=== PATIENT | female | born 1985 | race Caucasian/White ===

== ENCOUNTER → 2017-07-29 | Outpatient (CLI) | payer BC ==
[2017-07-31 11:40] LABS: DSR (BY AGE) 1 IN 665 (.); DSR (SECOND TRIMESTER) 1 IN 250 (.); GESTATIONAL AGE BASED ON. As provided (.); HCG MOM 1 2.26 (.); HCG VALUE 1 51355 mIU/mL (.); INSULIN DEPENDENT DIABETES No (.); OSBR RISK (1 IN) 10000 (.); T18RISK Not increased (.); UE3 MOM AFP 0.55 (.); UE3 VALUE AFP 0.78 ng/mL (.)
== END ==
LOC: OD 09:29
PROVIDERS: ATTEND Midwife
DX: Z36 Encounter for antenatal screening of mother (principal)
CPT/HCPCS: 36415; 82105; 82677; 84702; 86336; 87491; 87591

== ENCOUNTER → 2017-08-12 | Outpatient (CLI) | payer BC | LOC: OD 11:35 | PROVIDERS: ATTEND Midwife | DX: Z36 Encounter for antenatal screening of mother (principal) | CPT/HCPCS: 36415; 81420 ==

== ENCOUNTER 2017-12-09 11:38 | Outpatient (CLI) | payer BC, MEDICAID ==
[2017-12-09 12:22] LABS: APPEARANCE,URINE CLEAR; BILIRUBIN,URINE NEGATIVE (NEGATIVE); COLOR,URINE STRAW; GLUCOSE, URINE NEGATIVE (NEGATIVE); KETONES,URINE NEGATIVE (NEGATIVE); LEUKOCYTE ESTERASE,URINE TRACE (NEGATIVE); NITRITE,URINE NEGATIVE (NEGATIVE); PROTEIN,URINE NEGATIVE (NEGATIVE); URINE SPECIFIC GRAVITY 1.003; UROBILINOGEN,URINE NEGATIVE mg/dL (<2.0)
[2017-12-09 12:38] LABS: URINE AMPHETAMINES SCREEN NEGATIVE; URINE BARBITURATES SCREEN NEGATIVE; URINE BENZODIAZEPINES SCREEN NEGATIVE; URINE COCAINE SCREEN NEGATIVE; URINE MARIJUANA (THC) SCREEN NEGATIVE; URINE METHADONE SCREEN NEGATIVE; URINE PHENCYCLIDINE SCREEN NEGATIVE
--- NOTE | 2017-12-09 12:55 | Non Stress Test Report ---
Non Stress Test Datetime Report Generated by CPN: 12/09/2017 12:54 DEMOGRAPHIC EGA NST: 37.4 INDICATION Indication for Study: Ordered by Provider MONITORING Monitor Explained: Monitor Explained; Test Explained; Patient Verbalized Understanding (Annotations: Data stored by [facility] on behalf of user) Time on Monitor: 12/09/2017 11:54 Time off Monitor: 12/09/2017 12:42 NST Duration: 48 NST INTERVENTIONS NST Interventions: PO Hydration Physician Notified NST: J bashri CNM BABY A: [id number] BABY A Movement : Present Contraction Frequency : irregular FHR Baseline : 125 Accelerations : 15X15 Decelerations : None Variability : Moderate 6-25bpm NST Review: Meets Criteria for Reactive NST NST Review and Verified By : Lashay Mcknight RNC NST Results: Reactive NST REPORT Report Trigger: Send Report
== END 2017-12-09 12:48 | disposition home or self-care (01) ==
LOC: LC 11:38
PROVIDERS: ATTEND Obstetrics & Gynecology
PROC: 4A1HXCZ Monitoring of Products of Conception, Cardiac Rate, External Approach (ICD-10-PCS; principal; 2017-12-09)
DX: O47.1 False labor at or after 37 completed weeks of gestation (principal); Z3A.37 37 weeks gestation of pregnancy
CPT/HCPCS: 59025; 80307; 81005

== ENCOUNTER 2017-12-16 03:55 | Outpatient (CLI) | payer BC, MEDICAID ==
[2017-12-16 04:27] LABS: APPEARANCE,URINE CLEAR; BILIRUBIN,URINE NEGATIVE (NEGATIVE); COLOR,URINE YELLOW; GLUCOSE, URINE NEGATIVE (NEGATIVE); KETONES,URINE NEGATIVE (NEGATIVE); LEUKOCYTE ESTERASE,URINE SMALL (NEGATIVE); NITRITE,URINE NEGATIVE (NEGATIVE); PROTEIN,URINE NEGATIVE (NEGATIVE); URINE SPECIFIC GRAVITY 1.008; UROBILINOGEN,URINE NEGATIVE mg/dL (<2.0)
[2017-12-16 04:42] LABS: URINE AMPHETAMINES SCREEN NEGATIVE; URINE BARBITURATES SCREEN NEGATIVE; URINE BENZODIAZEPINES SCREEN NEGATIVE; URINE COCAINE SCREEN NEGATIVE; URINE MARIJUANA (THC) SCREEN NEGATIVE; URINE METHADONE SCREEN NEGATIVE; URINE PHENCYCLIDINE SCREEN NEGATIVE
[2017-12-16] MEDS ORDERED: HYDROXYZINE PAMOATE 50 MG CAPSULE PO ONE (05:39)
[2017-12-16] MEDS ORDERED: HYDROXYZINE PAMOATE 50 MG CAPSULE ONE (05:46)
== END 2017-12-16 05:51 | disposition home or self-care (01) ==
LOC: LC 03:55
PROVIDERS: ATTEND Obstetrics & Gynecology
PROC: 4A1HXCZ Monitoring of Products of Conception, Cardiac Rate, External Approach (ICD-10-PCS; principal; 2017-12-16)
DX: O47.1 False labor at or after 37 completed weeks of gestation (principal); Z3A.38 38 weeks gestation of pregnancy
CPT/HCPCS: 59025; 80307; 81005

== ENCOUNTER 2017-12-24 11:14 | Inpatient (IN) | payer BC, MEDICAID ==
--- NOTE | 2017-12-24 11:17 | Non Stress Test Report ---
Non Stress Test Datetime Report Generated by CPN: 12/24/2017 11:17 DEMOGRAPHIC EGA NST: 38.4 INDICATION Indication for Study: Ordered by Provider; Other Indication for Study (NST) Other: LC MONITORING Monitor Explained: Monitor Explained; Test Explained; Patient Verbalized Understanding Time on Monitor: 12/16/2017 04:06 Time off Monitor: 12/16/2017 05:36 NST Duration: 90 NST INTERVENTIONS NST Interventions: PO Hydration Physician Notified NST: Vini BABY A: [id number] BABY A Movement : Present Contraction Frequency : irregular FHR Baseline : 130 Accelerations : 15X15 Decelerations : None Variability : Moderate 6-25bpm NST Review: Meets Criteria for Reactive NST NST Review and Verified By : Naty Alvarado RN NSCaleb Results: Reactive NST REPORT Report Trigger: Send Report
[2017-12-24] MEDS ORDERED: RINGERS SOLUTION,LACTATED 1,000 ML IV PRN (11:34)
[2017-12-24] MEDS ORDERED: PENICILLIN G POTASSIUM 5,000,000 UNIT in DEXTROSE 5%-WATER 100 ML IV ONE (11:34)
[2017-12-24] MEDS ORDERED: RINGERS SOLUTION,LACTATED 1,000 ML IV ONE (11:34)
[2017-12-24 11:43] LABS: APPEARANCE,URINE CLEAR; BILIRUBIN,URINE NEGATIVE (NEGATIVE); COLOR,URINE YELLOW; GLUCOSE, URINE NEGATIVE (NEGATIVE); KETONES,URINE NEGATIVE (NEGATIVE); LEUKOCYTE ESTERASE,URINE TRACE (NEGATIVE); NITRITE,URINE NEGATIVE (NEGATIVE); PROTEIN,URINE NEGATIVE (NEGATIVE); URINE SPECIFIC GRAVITY 1.012; UROBILINOGEN,URINE NEGATIVE mg/dL (<2.0)
[2017-12-24] MEDS ORDERED: PENICILLIN G-K 5 MILLION UNIT VIAL ONE ×2 (11:49→15:26)
[2017-12-24 12:00] LABS: URINE AMPHETAMINES SCREEN NEGATIVE; URINE BARBITURATES SCREEN NEGATIVE; URINE BENZODIAZEPINES SCREEN NEGATIVE; URINE COCAINE SCREEN NEGATIVE; URINE MARIJUANA (THC) SCREEN NEGATIVE; URINE METHADONE SCREEN NEGATIVE; URINE PHENCYCLIDINE SCREEN NEGATIVE
[2017-12-24 12:17] LABS: ABSOLUTE EOSINOPHILS # (AUTO) 0.1 10^3/uL (0.0-0.6); ABSOLUTE MONOCYTES (AUTO) 0.8 10^3/uL (0.1-1.4); ABSOLUTE NEUT (AUTO) 12.1 10^3/uL (1.7-8.2); BASOPHILS % (AUTO) 0.1 % (0-2); EOSINOPHILS % (AUTO) 0.4 % (0-6); HEMATOCRIT 37.6 % (36.0-47.0); HEMOGLOBIN 12.5 g/dL (12.0-15.5); LYMPHOCYTES % (AUTO) 13.2 % (13-45); MEAN CORPUSCULAR HGB CONC 33.1 g/dL (32.0-36.0); MEAN CORPUSCULAR VOLUME 85 fl (80-97); MONOCYTES % (AUTO) 5.2 % (3-13); PLATELET COUNT 182 10^3/uL (150-450); RED BLOOD COUNT 4.45 10^6/uL (3.72-5.28); RED CELL DISTRIBUTION WIDTH 16.2 % (11.5-14.0); SEGMENTED NEUTROPHILS % (AUTO) 81.1 % (42-78); TOTAL CELLS COUNTED % (AUTO) 100 %; WHITE BLOOD COUNT 14.9 10^3/uL (4.0-10.5)
[2017-12-24] MEDS ORDERED: MISOPROSTOL 0.2 MG TABLET ONE (12:31)
[2017-12-24] MEDS ORDERED: LIDOCAINE 1% INJ-PF (10 MG/ML) 30 ML SDV ONE (12:31)
[2017-12-24] MEDS ORDERED: OXYTOCIN/NORMAL SALINE 20 UNIT/1,000 ML RTUINJ ONE ×2 (12:31→21:07)
[2017-12-24] MEDS ORDERED: NORMAL SALINE 250 ML IV PRN (13:06)
[2017-12-24] MEDS ORDERED: PENICILLIN G POTASSIUM 2,500,000 UNIT in DEXTROSE 5%-WATER 50 ML IV SCH (15:35)
[2017-12-24] MEDS ORDERED: OXYTOCIN/NORMAL SALINE 20 UNIT/1,000 ML RTUINJ IV PRN ×2 (16:02→19:40)
--- NOTE | 2017-12-24 16:03 | L&D Progress Notes ---
PROGRESS NOTES Datetime Report Generated by CPN: 12/24/2017 16:02 PROGRESS NOTE Impression: Normal Progression of Labor Procedures: Artificial ROM; Sterile Speculum Exam Plan: Augmentation Informed Consent Obtained: Vaginal Delivery; Risks, Benefits and Alternatives Discussed Informed Consent Obtained: Vaginal Delivery; Risks, Benefits and Alternatives Discussed Vital Signs : Reviewed Comment: S: pt. would like rupture of membranes instead of augmentation with pit if possible O: vss, cervix as stated, irreg. contractions A: IUP @39w5d in labor-slowly progressing AROM-clear fluid P: Augment with pit if contractions continue to space out. Pt. agreeable with plan of care. VAGINAL EXAM Dilatation: 5 Dilatation: 5 Effacement: 100 Effacement: 80 Station: -2 Station: -2 Contractions: irregular Contractions: q24 MEMBRANES Membranes: Ruptured Membranes: Intact Amniotic Fluid Color: Clear FETUS A FHR - Baseline: 120 Variability: Moderate 6-25bpm Decelerations: None FHR Category: Category I Presentation: Vertex SIGNATURE SIGNATURE: [id number];[id number] SIGNATURE: [id number] SIGNATURE: [id number] Assignment: Christie Haider MD Signature: with User ID: [email or web address] : with User ID: [email or web address]
--- NOTE | 2017-12-24 17:38 | L&D Progress Notes ---
PROGRESS NOTES Datetime Report Generated by CPN: 12/24/2017 17:38 PROGRESS NOTE Impression: Reassuring Heart Rate Procedures: Sterile Vag Exam Plan: Continue Present Management Vital Signs : Reviewed Comment: breathing thru ctx. unsure about pain mgmt. Reviewed pain mgmt options unable to assess sve as pts bladder was full and presenting part was very high sono done, vertex Pt up to bathroom Pt to decide on pain mgmt FETUS A FHR - Baseline: 135 Monitoring: External US Variability: Moderate 6-25bpm Accelerations: 15X15 Decelerations: None FHR Category: Category I FETUS C SIGNATURE: [id number];[id number] Assignment: Christie Haider MD Signature: with User ID: [email or web address] : with User ID: [email or web address]
[2017-12-24] MEDS ORDERED: PROMETHAZINE HCL INJ 25 MG/1 ML VIAL IV ONE (18:07)
[2017-12-24] MEDS ORDERED: NALBUPHINE HCL INJ 10 MG/1 ML AMPULE INJ ONE (18:07)
[2017-12-24] MEDS ORDERED: PROMETHAZINE HCL INJ 25 MG/1 ML VIAL ONE (18:09)
[2017-12-24] MEDS ORDERED: NALBUPHINE HCL INJ 10 MG/1 ML AMPULE ONE (18:10)
[2017-12-24] MEDS ORDERED: PROMETHAZINE HCL INJ 25 MG/1 ML VIAL IV PRN (19:40)
[2017-12-24] MEDS ORDERED: ZOLPIDEM TARTRATE 5 MG TABLET PO PRN (19:40)
[2017-12-24] MEDS ORDERED: NA PHOS,M-B/NA PHOS,DI-BA (ADULT) 133 ML ENEMA PR PRN (19:40)
[2017-12-24] MEDS ORDERED: DIBUCAINE 1% OINTMENT 28 GM TP PRN (19:40)
[2017-12-24] MEDS ORDERED: DIPHENHYDRAMINE HCL 25 MG CAPSULE PO PRN (19:40)
[2017-12-24] MEDS ORDERED: PROMETHAZINE HCL 25 MG SUPP.RECT PR PRN (19:40)
[2017-12-24] MEDS ORDERED: PSEUDOEPHEDRINE HCL 30 MG TABLET PO PRN (19:40)
[2017-12-24] MEDS ORDERED: ACETAMINOPHEN 650 MG SUPP.RECT PR PRN (19:40)
[2017-12-24] MEDS ORDERED: MEASLES,MUMPS&RUBELLA VACC/PF 0.5 ML VIAL SUBCUT PRN (19:40)
[2017-12-24] MEDS ORDERED: BENZOCAINE/MENTHOL AEROSOL SPRAY 56 ML TOP PRN (19:40)
[2017-12-24] MEDS ORDERED: ACETAMINOPHEN WITH CODEINE #3 TABLET PO PRN ×2 (19:40)
[2017-12-24] MEDS ORDERED: PROMETHAZINE HCL 25 MG TABLET PO PRN (19:40)
[2017-12-24] MEDS ORDERED: DIPH/PERTUSS(ACELL)/TETANUS VAC/PF 0.5 ML SYR (>=10YO) IM PRN (19:40)
[2017-12-24] MEDS ORDERED: GLYCERIN/WITCH HAZEL LEAF 1 EACH MED..PAD TP PRN (19:40)
[2017-12-24] MEDS ORDERED: MAGNESIUM HYDROXIDE SUSP 30 ML UDCUP PO PRN (19:40)
[2017-12-24] MEDS ORDERED: MISOPROSTOL 0.2 MG TABLET PR PRN (19:40)
[2017-12-24] MEDS ORDERED: FENTANYL CITRATE INJ/PF 100 MCG/2 ML AMPUL ONE (20:09)
--- NOTE | 2017-12-24 22:28 | Admission Physical ---
Datetime Report Generated by CPN: 12/24/2017 22:28 CURRENT ADMISSION Chief Complaint: Uterine Contractions Indication for Induction: Not Applicable Indication for Induction: Term, Intrauterine ; Active Labor; Intact Membranes Admit Plan: Admit to Unit; Initiate Labor Protocol ALLERGIES Medication Allergies: Yes Medication Allergies: sulfamethoxazole/Hives (12/09/2017); trimethoprim/Hives (12/09/2017) Latex: No Latex Allergies Food Allergies: none Environmental Allergies: none OBSTETRICAL HISTORY EDC: 12/26/2017 00:00 : 6 Para: 5 Term: 5 : 0 SAB: 0 IAB: 0 Ectopic: 0 Livin Cesareans: 0 VBACs: 0 Multiple Births: 0 Gestational Diabetes: No Rh Sensitization: No Incompetent Cervix: No JOHNNIE: No Infertility: No ART Treatment: No Uterine Anomaly: No IUGR: No Hx Previous C/S: No Macrosomia: No Hx Loss/Stillborn: No PIH: No Hx : No Placenta Previa/Abruption: No Depression/PP Depression: No PTL/PROM: No Post Hemorrhage: No Current Procedures: Ultrasound; NST Obstetrical History Comments: G1 boy,2004, 41 weeks G2 girl, 2006, ,37 weeks G3 girl, 2008, 38wks G4 boy,2012, 38 wks G5 boy,2014, 38 wks G6 current SEE RECORDS Alcohol: No Marijuana : No Cocaine: No Other Illicit Drugs: No Cigarettes: Never Smoker. 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: No Heart Disease: No Hosp/Surgery: Yes Autoimmune Disorder: No Anesthetic Complications: No Kidney Disease: No Abnormal Pap Smear: No Neuro/Epilepsy: No Psychiatric Disorders: No Other Medical Diseases: No Hepatitis/Liver Disease: No Significant Family History: No Varicosities/Phlebitis: No Trauma/Violence : No Thyroid Dysfunction: No Medical History Comments: CHILDBIRTH INFECTIOUS HISTORY Gonorrhea: No Genital Herpes: No Chlamydia: Yes Tuberculosis: No Syphilis: No Hepatitis: No HIV/AIDS Exposure: No Rash or Viral Illness: No HPV: No Infectious History Comments: SHRUTHI 07/2017 PHYSICAL EXAM General: Normal HEENT: Normal Neurologic: Normal Thyroid: Deferred Heart: Normal Lungs: Normal Breast: Deferred Back: Normal Abdomen: Normal Genitourinary Exam: Normal Extremities: Normal DTRs: Normal Pelvic Type: Adequate Vital Signs: Reviewed VAGINAL EXAM Dilatation: 5 Dilatation: 5 Effacement: 100 Effacement: 80 Station: -2 Station: -2 Contraction Comments: irregular Contraction Comments: q24 MEMBRANES Membranes: Ruptured Membranes: Intact Amniotic Fluid Color: Clear FETUS A EGA: 39.5 Monitoring: External US FHR- Baseline: 125 Variability: Moderate 6-25bpm Accelerations: 15X15 Decelerations: None FHR Category: Category I Presentation: Vertex Admit Comment: 32yo at 39+5ega presents for regular uterine contractions. c/b Obesity - normal 1 hr GTT. + chlamydia - good SHRUTHI. Wants to have BTL. GBS positive - PCN for GBS prophy. +AFP with increased risk for DS - normal Informaseq. Pelvis proven to 8#14oz. Rh negative - recieved Rhogam. CAT I FHR tracing. Anticpate . PLANS FOR LABOR AND DELIVERY Pain Management: None Feeding Preference: Both Benefit of Breast Feed Discussed: Yes Circumcision: Yes INFORMED CONSENT Informed Consent Obtained: Vaginal Delivery; Risks, Benefits and Alternatives Discussed Informed Consent Obtained: Vaginal Delivery; Risks, Benefits and Alternatives Discussed Signature: with User ID: [email or web address]
[2017-12-24] MEDS: FAMOTIDINE 20 MG TABLET PO SCH (23:03)
[2017-12-24] MEDS: IBUPROFEN 800 MG TABLET PO SCH (23:03)
[2017-12-25] MEDS: IBUPROFEN 800 MG TABLET PO SCH ×3 (06:35→21:03)
[2017-12-25 08:19] LABS: HEMATOCRIT 33.1 % (36.0-47.0); MEAN CORPUSCULAR HEMOGLOBIN 27.9 pg (27.0-33.4); MEAN CORPUSCULAR HGB CONC 33.1 g/dL (32.0-36.0); MEAN CORPUSCULAR VOLUME 84 fl (80-97); PLATELET COUNT 188 10^3/uL (150-450); RED BLOOD COUNT 3.92 10^6/uL (3.72-5.28); RED CELL DISTRIBUTION WIDTH 15.8 % (11.5-14.0)
[2017-12-25] MEDS: FERROUS SULFATE 325 MG TABLET PO SCH ×2 (09:08→17:35)
[2017-12-25] MEDS: DOCUSATE SODIUM 100 MG CAPSULE PO SCH ×2 (09:08→17:35)
[2017-12-25] MEDS: SENNOSIDES/DOCUSATE 8.6-50 MG 1 EACH TABLET PO SCH (09:08)
[2017-12-25] MEDS: FAMOTIDINE 20 MG TABLET PO SCH ×2 (09:08→21:03)
[2017-12-25] MEDS: PRENATAL VITAMIN W DHA CAPSULE PO SCH (09:09)
--- NOTE | 2017-12-25 09:52 | PDOC PROGRESS REPORT ---
Subjective-OB Subjective: Post Delivery Day: 32 year old. Denies any needs at this time Physical Exam (OB) Vital Signs: Temp Pulse Resp BP Pulse Ox 98.6 F 69 17 104/48 L 99 12/25/17 08:24 12/25/17 08:24 12/25/17 08:24 12/25/17 08:24 12/25/17 08:24 Intake & Output 12/24/17 12/25/17 12/26/17 06:59 06:59 06:59 Weight 91.6 kg - Lochia Lochia Amount: Moderate 25-50 ml Lochia Color: Rubra/Red - Abdomen Description: Tender, Soft Hernia Present: No Bowel Sounds: Normoactive Flatus Presence: Absent Stool: No Fundal Description: Firm, Midline Fundal Height: u/u - u/2 Objective-Diagnostic Laboratory: 12/25/17 07:42 12/24/17 12/24/17 12/24/17 11:20 12:01 12:01 WBC 14.9 H RBC 4.45 Hgb 12.5 Hct 37.6 MCV 85 MCH 28.0 MCHC 33.1 RDW 16.2 H Plt Count 182 Seg Neutrophils % 81.1 H Lymphocytes % 13.2 Monocytes % 5.2 Eosinophils % 0.4 Basophils % 0.1 Absolute Neutrophils 12.1 H Absolute Lymphocytes 2.0 Absolute Monocytes 0.8 Absolute Eosinophils 0.1 Absolute Basophils 0.0 Urine Color YELLOW Urine Appearance CLEAR Urine pH 6.0 Ur Specific [place] 1.012 Urine Protein NEGATIVE Urine Glucose (UA) NEGATIVE Urine Ketones NEGATIVE Urine Blood NEGATIVE Urine Nitrite NEGATIVE Ur Leukocyte Esterase TRACE H Urine WBC (Auto) 5 Urine RBC (Auto) 0 Blood Type A NEGATIVE Antibody Screen POSITIVE 12/25/17 12/25/17 07:42 07:42 WBC 19.0 H RBC 3.92 Hgb 11.0 L Hct 33.1 L MCV 84 MCH 27.9 MCHC 33.1 RDW 15.8 H Plt Count 188 Seg Neutrophils % Lymphocytes % Monocytes % Eosinophils % Basophils % Absolute Neutrophils Absolute Lymphocytes Absolute Monocytes Absolute Eosinophils Absolute Basophils Urine Color Urine Appearance Urine pH Ur Specific [place] Urine Protein Urine Glucose (UA) Urine Ketones Urine Blood Urine Nitrite Ur Leukocyte Esterase Urine WBC (Auto) Urine RBC (Auto) Blood Type A NEGATIVE Antibody Screen
[2017-12-26] MEDS: IBUPROFEN 800 MG TABLET PO SCH ×2 (05:51→13:08)
[2017-12-26 07:26] LABS: HEMATOCRIT 35.5 % (36.0-47.0); HEMOGLOBIN 11.6 g/dL (12.0-15.5); MEAN CORPUSCULAR HEMOGLOBIN 28.2 pg (27.0-33.4); MEAN CORPUSCULAR HGB CONC 32.8 g/dL (32.0-36.0); MEAN CORPUSCULAR VOLUME 86 fl (80-97); PLATELET COUNT 181 10^3/uL (150-450); RED BLOOD COUNT 4.13 10^6/uL (3.72-5.28); RED CELL DISTRIBUTION WIDTH 16.1 % (11.5-14.0); WHITE BLOOD COUNT 15.3 10^3/uL (4.0-10.5)
[2017-12-26] MEDS: DOCUSATE SODIUM 100 MG CAPSULE PO SCH (09:18)
[2017-12-26] MEDS: FERROUS SULFATE 325 MG TABLET PO SCH (09:19)
[2017-12-26] MEDS: SENNOSIDES/DOCUSATE 8.6-50 MG 1 EACH TABLET PO SCH (09:19)
[2017-12-26] MEDS: FAMOTIDINE 20 MG TABLET PO SCH (09:19)
[2017-12-26] MEDS: PRENATAL VITAMIN W DHA CAPSULE PO SCH (09:19)
--- NOTE | 2017-12-26 09:22 | PDOC PROGRESS REPORT ---
Subjective-OB Subjective: Post Delivery Day: 32 year old. Denies any needs at this time Doing well, no c/o, breast feeding only. scant lochia, voiding, eating well Physical Exam (OB) Vital Signs: Temp Pulse Resp BP Pulse Ox 97.9 F 77 17 124/66 99 12/26/17 08:05 12/26/17 08:05 12/26/17 08:05 12/26/17 08:05 12/26/17 08:05 Intake & Output 12/25/17 12/26/17 12/27/17 06:59 06:59 06:59 Intake Total 300 Balance 300 Weight 91.6 kg - PIH/Pre-Eclampsia DTR's: 2 + Clonus: Negative Headache: Absent Epigastric Pain: No Visual Changes: No - Lochia Lochia Amount: Scant < 10 ml Lochia Color: Rubra/Red - Abdomen Description: Tender, Soft, Round Hernia Present: No Fundal Description: Firm, Midline Fundal Height: u/u - u/2 Objective-Diagnostic Laboratory: 12/26/17 07:15 12/25/17 12/26/17 07:42 07:15 WBC 15.3 H RBC 4.13 Hgb 11.6 L Hct 35.5 L MCV 86 MCH 28.2 MCHC 32.8 RDW 16.1 H Plt Count 181 Blood Type A NEGATIVE Assessment and Plan(PN) - Assessment and Plan (1) Obesity Qualifiers: Obesity type: due to excess calories Body mass index: unspecified BMI Is this a current diagnosis for this admission?: Yes (2) Delivery normal Is this a current diagnosis for this admission?: Yes (3) Grand multiparity Is this a current diagnosis for this admission?: Yes (4) Group B streptococcal infection during Is this a current diagnosis for this admission?: Yes - Time Spent with Patient Time with patient: Less than 15 minutes Medications reviewed and adjusted accordingly: Yes - Disposition Anticipated Discharge: Home Within: Other - home today
--- NOTE | 2017-12-26 09:25 | PDOC DISCHARGE SUMMARY ---
Final Diagnosis Discharge Date: 12/26/17 - Final Diagnosis (1) Obesity Is this a current diagnosis for this admission?: Yes (2) Delivery normal Is this a current diagnosis for this admission?: Yes (3) Grand multiparity Is this a current diagnosis for this admission?: Yes (4) Group B streptococcal infection during Is this a current diagnosis for this admission?: Yes Discharge Data - Discharge Medication Home Medications: Ascorbic Acid [Vitamin C] 1,000 mg PO DAILY 12/09/17 Docusate Sodium [Colace] 100 mg PO DAILY 12/09/17 Esomeprazole Magnesium [Nexium 24Hr] 1 cap PO DAILY 12/09/17 Ferrous Sulfate [Iron] 325 mg PO BID 12/09/17 Pediatric Multivitamin No.42 [Flintstones] 1 tab PO DAILY 12/09/17 Gestational Age: 39.5 Reason(s) for Admission: Onset of Labor, Group B Strep Positive Procedures: Ultrasound Intrapartum Procedure(s): Spontaneous Vaginal Delivery - Data Baby 1 Male at 1 minute: 9 at 5 minutes: 9 Weight: 3.374 kg Home with Mother: Yes Complications: No - Diagnosis Test Laboratory: Temp Pulse Resp BP Pulse Ox 97.9 F 77 17 124/66 99 12/26/17 08:05 12/26/17 08:05 12/26/17 08:05 12/26/17 08:05 12/26/17 08:05 12/24/17 12/24/17 12/25/17 11:20 12:01 07:42 RBC 4.45 3.92 Hgb 12.5 11.0 L Hct 37.6 33.1 L Urine Opiates Screen NEGATIVE 12/26/17 07:15 RBC 4.13 Hgb 11.6 L Hct 35.5 L Urine Opiates Screen - Discharge information/Instructions Discharge Activity: Activity As Tolerated, No Lifting Over 10 Pounds, No Lifting /Push/Pulling, Pelvic Rest Discharge Diet: As Tolerated, Regular Disposition: HOME, SELF-CARE Follow up with: [facility] in: 4, Weeks
[2017-12-26 09:34] VITALS: BP 106/58
== END 2017-12-26 13:30 | disposition home or self-care (01) | DRG 775 ==
LOC: LC 11:14 → LR 11:34 → 2S 22:00
PROVIDERS: ADMIT Student in an Organized Health Care Education/Training Program; ATTEND Student in an Organized Health Care Education/Training Program
PROC: 10E0XZZ Delivery of Products of Conception, External Approach (ICD-10-PCS; principal; 2017-12-24)
PROC: 4A1HXCZ Monitoring of Products of Conception, Cardiac Rate, External Approach (ICD-10-PCS; 2017-12-24)
PROC: 3E0234Z Introduction of Serum, Toxoid and Vaccine into Muscle, Percutaneous Approach (ICD-10-PCS; 2017-12-25)
DX: O99.824 Streptococcus B carrier state complicating childbirth (principal); O26.893 Other specified pregnancy related conditions, third trimester; Z67.11 Type A blood, Rh negative; O99.214 Obesity complicating childbirth; E66.09 Other obesity due to excess calories; Z68.34 Body mass index [BMI] 34.0-34.9, adult; O69.81X0 Labor and delivery complicated by cord around neck, without compression, not applicable or unspecified; Z88.3 Allergy status to other anti-infective agents; Z88.2 Allergy status to sulfonamides; Z3A.39 39 weeks gestation of pregnancy; Z37.0 Single live birth
CPT/HCPCS: 36415; 80307; 81001; 85025; 85027; 85461; 86592; 86850; 86870; 86900; 86901; 86920; 86922; J2300; J2540; J2550; J2590; J2790; J3010; J3490

== ENCOUNTER 2019-06-02 05:27 | Outpatient (CLI) | payer BC, MEDICAID ==
[2019-06-02 06:14] LABS: APPEARANCE,URINE CLEAR; BILIRUBIN,URINE NEGATIVE (NEGATIVE); COLOR,URINE STRAW; GLUCOSE, URINE NEGATIVE (NEGATIVE); KETONES,URINE NEGATIVE (NEGATIVE); LEUKOCYTE ESTERASE,URINE NEGATIVE (NEGATIVE); NITRITE,URINE NEGATIVE (NEGATIVE); PROTEIN,URINE NEGATIVE (NEGATIVE); URINE SPECIFIC GRAVITY 1.009; UROBILINOGEN,URINE NEGATIVE mg/dL (<2.0)
[2019-06-02 06:39] LABS: URINE AMPHETAMINES SCREEN NEGATIVE; URINE BARBITURATES SCREEN NEGATIVE; URINE BENZODIAZEPINES SCREEN NEGATIVE; URINE COCAINE SCREEN NEGATIVE; URINE MARIJUANA (THC) SCREEN NEGATIVE; URINE METHADONE SCREEN NEGATIVE; URINE PHENCYCLIDINE SCREEN NEGATIVE
--- NOTE | 2019-06-02 07:18 | Non Stress Test Report ---
Non Stress Test Datetime Report Generated by CPN: 06/02/2019 07:18 DEMOGRAPHIC EGA NST: 38.1 INDICATION Indication for Study: Ordered by Provider MONITORING Monitor Explained: Monitor Explained; Test Explained; Patient Verbalized Understanding Time on Monitor: 06/02/2019 05:41 Time off Monitor: 06/02/2019 06:38 NST Duration: 57 NST INTERVENTIONS NST Interventions: PO Hydration Physician Notified NST: Dr. Phillips BABY A: [id number] BABY A Movement : Present Contraction Frequency : 3-6 FHR Baseline : 130 Accelerations : 15X15 Decelerations : None Variability : Moderate 6-25bpm NST Review: Meets Criteria for Reactive NST NST Review and Verified By : ARYAN Nieves Results: Reactive NST REPORT Report Trigger: Send Report
== END 2019-06-02 07:20 | disposition home or self-care (01) ==
LOC: LC 05:27
PROVIDERS: ATTEND Obstetrics & Gynecology Gynecology
PROC: 4A1HXCZ Monitoring of Products of Conception, Cardiac Rate, External Approach (ICD-10-PCS; principal; 2019-06-02)
DX: O47.1 False labor at or after 37 completed weeks of gestation (principal); Z3A.38 38 weeks gestation of pregnancy
CPT/HCPCS: 59025; 80307; 81005

== ENCOUNTER 2019-06-04 18:38 | Outpatient (CLI) | payer OTHER ==
--- NOTE | 2019-06-04 19:27 | Non Stress Test Report ---
Non Stress Test Datetime Report Generated by CPN: 06/04/2019 19:26 DEMOGRAPHIC EGA NST: 38.3 INDICATION Indication for Study: Ordered by Provider VITAL SIGNS Temperature - NST: 98.0 MONITORING Monitor Explained: Monitor Explained; Test Explained; Patient Verbalized Understanding Time on Monitor: 06/04/2019 18:59 Time off Monitor: 06/04/2019 19:24 NST Duration: 25 NST INTERVENTIONS NST Interventions: None Physician Notified NST: Dr. Vini BABY A: [id number] BABY A Movement : Present Contraction Frequency : none FHR Baseline : 130 Accelerations : 15X15 Decelerations : None Variability : Moderate 6-25bpm NST Review: Meets Criteria for Reactive NST NST Review and Verified By : Emperatriz Valdez RN NST Results: Reactive NST REPORT Report Trigger: Send Report
[2019-06-04 19:30] LABS: APPEARANCE,URINE CLEAR
[2019-06-04 19:31] LABS: COLOR,URINE STRAW
[2019-06-04 19:32] LABS: BILIRUBIN,URINE NEGATIVE (NEGATIVE); GLUCOSE, URINE NEGATIVE (NEGATIVE); KETONES,URINE NEGATIVE (NEGATIVE); PROTEIN,URINE NEGATIVE (NEGATIVE); URINE AMPHETAMINES SCREEN NEGATIVE; URINE BARBITURATES SCREEN NEGATIVE; URINE BENZODIAZEPINES SCREEN NEGATIVE; URINE COCAINE SCREEN NEGATIVE; URINE MARIJUANA (THC) SCREEN NEGATIVE; URINE METHADONE SCREEN NEGATIVE; URINE PHENCYCLIDINE SCREEN NEGATIVE
[2019-06-04 19:33] LABS: LEUKOCYTE ESTERASE,URINE NEGATIVE (NEGATIVE); NITRITE,URINE NEGATIVE (NEGATIVE); UROBILINOGEN,URINE NEGATIVE mg/dL (<2.0)
[2019-06-04 19:35] LABS: URINE SPECIFIC GRAVITY 1.009
== END 2019-06-04 19:29 | disposition home or self-care (01) ==
LOC: LC 18:38
PROVIDERS: ATTEND Obstetrics & Gynecology
PROC: 4A1HXCZ Monitoring of Products of Conception, Cardiac Rate, External Approach (ICD-10-PCS; principal; 2019-06-04)
DX: O47.1 False labor at or after 37 completed weeks of gestation (principal); Z3A.38 38 weeks gestation of pregnancy
CPT/HCPCS: 80307; 81005

== ENCOUNTER 2019-06-12 08:02 | Inpatient (IN) | payer OTHER ==
[2019-06-12] MEDS ORDERED: PENICILLIN G-K 5 MILLION UNIT VIAL ONE (08:30)
[2019-06-12] MEDS ORDERED: RINGERS SOLUTION,LACTATED 1,000 ML IV ONE (08:32)
[2019-06-12] MEDS ORDERED: PENICILLIN G POTASSIUM 5,000,000 UNIT in DEXTROSE 5%-WATER 100 ML IV ONE (08:32)
[2019-06-12] MEDS ORDERED: RINGERS SOLUTION,LACTATED 1,000 ML IV PRN (08:32)
[2019-06-12] MEDS ORDERED: LIDOCAINE 1% INJ-PF (10 MG/ML) 30 ML SDV ONE (08:55)
[2019-06-12] MEDS ORDERED: MISOPROSTOL 0.2 MG TABLET ONE (08:55)
[2019-06-12] MEDS ORDERED: OXYTOCIN/NORMAL SALINE 20 UNIT/1,000 ML RTUINJ ONE (08:55)
[2019-06-12] MEDS ORDERED: METHYLERGONOVINE MALEATE INJ/PF 0.2 MG/1 ML AMPULE ONE (09:07)
--- NOTE | 2019-06-12 09:27 | Admission Physical ---
Datetime Report Generated by CPN: 06/12/2019 09:27 CURRENT ADMISSION Chief Complaint: Uterine Contractions Indication for Induction: Not Applicable Admit Impression : Term, Intrauterine ; Active Labor Admit Plan: Admit to Unit; Initiate Labor Protocol ALLERGIES Medication Allergies: Yes Medication Allergies: sulfamethoxazole/Hives (06/12/2019); trimethoprim/Hives (06/12/2019) Latex: No Latex Allergies OBSTETRICAL HISTORY EDC: 06/15/2019 00:00 : 7 Para: 6 Gestational Diabetes: No Rh Sensitization: No Incompetent Cervix: No JOHNNIE: No Infertility: No ART Treatment: No Uterine Anomaly: No IUGR: No Hx Previous C/S: No Macrosomia: No Hx Loss/Stillborn: No PIH: No Hx : No Placenta Previa/Abruption: No Depression/PP Depression: No PTL/PROM: No Post Hemorrhage: No SEE RECORDS Alcohol: No Marijuana : No Cocaine: No Other Illicit Drugs: No Cigarettes: Never Smoker. 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: No Heart Disease: No Hosp/Surgery: Yes Autoimmune Disorder: No Anesthetic Complications: No Kidney Disease: No Abnormal Pap Smear: No Neuro/Epilepsy: No Psychiatric Disorders: No Other Medical Diseases: No Hepatitis/Liver Disease: No Significant Family History: No Varicosities/Phlebitis: No Trauma/Violence : No Thyroid Dysfunction: No Medical History Comments: wisdom teeth removal INFECTIOUS HISTORY Gonorrhea: No Genital Herpes: No Chlamydia: No Tuberculosis: No Syphilis: No Hepatitis: No HIV/AIDS Exposure: No Rash or Viral Illness: No HPV: No PHYSICAL EXAM General: Normal HEENT: Normal Neurologic: Normal Thyroid: Normal Heart: Normal Lungs: Normal Breast: Normal Back: Normal Abdomen: Normal Genitourinary Exam: Normal Extremities: Normal DTRs: Normal Pelvic Type: Adequate Vital Signs: Reviewed VAGINAL EXAM Dilatation: 6 Effacement: 90 Station: -1 Contraction Comments: Regular MEMBRANES Membranes: Bulging FETUS A EGA: 39.4 Monitoring: External US FHR- Baseline: 150 Variability: Moderate 6-25bpm Accelerations: 15X15 Decelerations: None FHR Comments: Reassuring Estimated Weight (gm): 3500 Presentation: Vertex Admit Comment: Admit-Term , active labor-Expect vaginal delivery PLANS FOR LABOR AND DELIVERY Labor and Delivery: None Pain Management: Natural Feeding Preference: Both Benefit of Breast Feed Discussed: Yes Circumcision: Yes INFORMED CONSENT Signature: with User ID: [email or web address] : I personally evaluated and examined the patient in conjunction with the MLP and agree with the assessment, treatment plan and disposition.
[2019-06-12 10:03] LABS: APPEARANCE,URINE CLEAR; BILIRUBIN,URINE NEGATIVE (NEGATIVE); COLOR,URINE YELLOW; GLUCOSE, URINE NEGATIVE (NEGATIVE); KETONES,URINE NEGATIVE (NEGATIVE); LEUKOCYTE ESTERASE,URINE NEGATIVE (NEGATIVE); NITRITE,URINE NEGATIVE (NEGATIVE); PROTEIN,URINE NEGATIVE (NEGATIVE); URINE SPECIFIC GRAVITY 1.013; UROBILINOGEN,URINE NEGATIVE mg/dL (<2.0)
[2019-06-12] MEDS ORDERED: MEASLES,MUMPS&RUBELLA VACC/PF 0.5 ML VIAL SUBCUT PRN ×2 (10:22→11:41)
[2019-06-12] MEDS ORDERED: OXYTOCIN/NORMAL SALINE 20 UNIT/1,000 ML RTUINJ IV PRN ×2 (10:22→11:41)
[2019-06-12] MEDS ORDERED: BENZOCAINE/MENTHOL AEROSOL SPRAY 56 ML TOP PRN ×2 (10:22→11:41)
[2019-06-12] MEDS ORDERED: ACETAMINOPHEN WITH CODEINE #3 TABLET PO PRN ×4 (10:22→11:41)
[2019-06-12] MEDS ORDERED: ZOLPIDEM TARTRATE 5 MG TABLET PO PRN ×2 (10:22→11:41)
[2019-06-12] MEDS ORDERED: DIBUCAINE 1% OINTMENT 56 GM TP PRN ×2 (10:22→11:41)
[2019-06-12] MEDS ORDERED: DIPH/PERTUSS(ACELL)/TETANUS VAC/PF 0.5 ML SYR (>=10YO) IM PRN ×2 (10:22→11:41)
[2019-06-12 10:25] LABS: URINE AMPHETAMINES SCREEN NEGATIVE; URINE BARBITURATES SCREEN NEGATIVE; URINE BENZODIAZEPINES SCREEN NEGATIVE; URINE COCAINE SCREEN NEGATIVE; URINE MARIJUANA (THC) SCREEN NEGATIVE; URINE METHADONE SCREEN NEGATIVE; URINE PHENCYCLIDINE SCREEN NEGATIVE
[2019-06-12 11:16] LABS: ABSOLUTE LYMPHOCYTES (AUTO) 1.6 10^3/uL (0.5-4.7); ABSOLUTE MONOCYTES (AUTO) 0.8 10^3/uL (0.1-1.4); ABSOLUTE NEUT (AUTO) 18.6 10^3/uL (1.7-8.2); BASOPHILS % (AUTO) 0.2 % (0-2); EOSINOPHILS % (AUTO) 0.1 % (0-6); HEMATOCRIT 36.6 % (36.0-47.0); HEMOGLOBIN 11.7 g/dL (12.0-15.5); LYMPHOCYTES % (AUTO) 7.7 % (13-45); MEAN CORPUSCULAR HEMOGLOBIN 23.9 pg (27.0-33.4); MEAN CORPUSCULAR HGB CONC 31.9 g/dL (32.0-36.0); MEAN CORPUSCULAR VOLUME 75 fl (80-97); MONOCYTES % (AUTO) 3.9 % (3-13); PLATELET COUNT 214 10^3/uL (150-450); RED BLOOD COUNT 4.88 10^6/uL (3.72-5.28); RED CELL DISTRIBUTION WIDTH 17.4 % (11.5-14.0); SEGMENTED NEUTROPHILS % (AUTO) 88.1 % (42-78); TOTAL CELLS COUNTED % (AUTO) 100 %; WHITE BLOOD COUNT 21.1 10^3/uL (4.0-10.5)
[2019-06-12] MEDS ORDERED: IBUPROFEN 800 MG TABLET ONE (11:20)
[2019-06-12] MEDS ORDERED: FERROUS SULFATE 325 MG TABLET PO SCH ×2 (11:41→18:00)
[2019-06-12] MEDS ORDERED: PRENATAL VITAMIN W DHA CAPSULE PO SCH (11:41)
[2019-06-12] MEDS ORDERED: METHYLERGONOVINE MALEATE INJ/PF 0.2 MG/1 ML AMPULE IM PRN (11:41)
[2019-06-12] MEDS ORDERED: SENNOSIDES/DOCUSATE 8.6-50 MG 1 EACH TABLET PO SCH (11:41)
[2019-06-12] MEDS ORDERED: MISOPROSTOL 0.2 MG TABLET PR PRN (11:41)
[2019-06-12] MEDS ORDERED: PENICILLIN G POTASSIUM 2,500,000 UNIT in DEXTROSE 5%-WATER 50 ML IV SCH (12:33)
[2019-06-12] MEDS ORDERED: IBUPROFEN 800 MG TABLET PO SCH (14:00)
[2019-06-12] MEDS: FERROUS SULFATE 325 MG TABLET PO SCH ×2 (15:18→18:06)
[2019-06-12] MEDS: IBUPROFEN 800 MG TABLET PO SCH ×2 (15:19→21:40)
[2019-06-12] MEDS: DOCUSATE SODIUM 100 MG CAPSULE PO SCH ×2 (15:19→18:07)
[2019-06-12] MEDS ORDERED: DOCUSATE SODIUM 100 MG CAPSULE PO SCH (18:00)
[2019-06-12] MEDS ORDERED: ACETAMINOPHEN 325 MG TABLET ONE (18:15)
[2019-06-13] MEDS: IBUPROFEN 800 MG TABLET PO SCH ×3 (05:19→21:30)
[2019-06-13 07:40] LABS: HEMATOCRIT 30.9 % (36.0-47.0); HEMOGLOBIN 9.9 g/dL (12.0-15.5); MEAN CORPUSCULAR HGB CONC 32.1 g/dL (32.0-36.0); MEAN CORPUSCULAR VOLUME 75 fl (80-97); PLATELET COUNT 194 10^3/uL (150-450); RED BLOOD COUNT 4.13 10^6/uL (3.72-5.28); RED CELL DISTRIBUTION WIDTH 17.2 % (11.5-14.0); WHITE BLOOD COUNT 18.4 10^3/uL (4.0-10.5)
[2019-06-13] MEDS: FERROUS SULFATE 325 MG TABLET PO SCH ×2 (09:38→18:03)
[2019-06-13] MEDS: SENNOSIDES/DOCUSATE 8.6-50 MG 1 EACH TABLET PO SCH (09:38)
[2019-06-13] MEDS: PRENATAL VITAMIN W DHA CAPSULE PO SCH (09:38)
[2019-06-13] MEDS: DOCUSATE SODIUM 100 MG CAPSULE PO SCH ×2 (09:38→18:03)
--- NOTE | 2019-06-13 11:12 | PDOC PROGRESS REPORT ---
Subjective-OB Progress Note for:: 06/13/19 Subjective: reports bleeding slowing, pain controlled with current meds. denies needs Physical Exam (OB) Vital Signs: Temp Pulse Resp BP Pulse Ox 97.7 F 75 16 105/64 99 06/13/19 08:20 06/13/19 08:20 06/13/19 08:20 06/13/19 08:20 06/13/19 08:20 Intake & Output 06/12/19 06/13/19 06/14/19 06:59 06:59 06:59 Intake Total 1000 Balance 1000 Weight 97.5 kg - Abdomen Description: Soft Hernia Present: No Fundal Description: Firm, Midline Fundal Height: u/u - u/2 - Abdominal Distension: No distension Tenderness: Nontender - Extremities Lower extremities: Valentine's sign - neg Calf: Normal, Nontender Objective-Diagnostic Laboratory: 06/13/19 07:07 06/12/19 06/12/19 06/13/19 10:56 10:56 07:07 WBC 21.1 H 18.4 H RBC 4.88 4.13 Hgb 11.7 L 9.9 L Hct 36.6 30.9 L MCV 75 L 75 L MCH 23.9 L 24.0 L MCHC 31.9 L 32.1 RDW 17.4 H 17.2 H Plt Count 214 194 Seg Neutrophils % 88.1 H Lymphocytes % 7.7 L Monocytes % 3.9 Eosinophils % 0.1 Basophils % 0.2 Absolute Neutrophils 18.6 H Absolute Lymphocytes 1.6 Absolute Monocytes 0.8 Absolute Eosinophils 0.0 Absolute Basophils 0.0 Blood Type A NEGATIVE Antibody Screen POSITIVE 06/13/19 07:07 WBC RBC Hgb Hct MCV MCH MCHC RDW Plt Count Seg Neutrophils % Lymphocytes % Monocytes % Eosinophils % Basophils % Absolute Neutrophils Absolute Lymphocytes Absolute Monocytes Absolute Eosinophils Absolute Basophils Blood Type A NEGATIVE Antibody Screen Assessment and Plan(PN) - Assessment and Plan (1) Delivery normal Is this a current diagnosis for this admission?: Yes (2) Grand multiparity Is this a current diagnosis for this admission?: Yes - Time Spent with Patient Time with patient: Less than 15 minutes Medications reviewed and adjusted accordingly: Yes - Disposition Anticipated Discharge: Home Within: within 24 hours
[2019-06-14] MEDS: IBUPROFEN 800 MG TABLET PO SCH ×2 (05:08→13:27)
[2019-06-14] MEDS: PRENATAL VITAMIN W DHA CAPSULE PO SCH (09:32)
[2019-06-14] MEDS: SENNOSIDES/DOCUSATE 8.6-50 MG 1 EACH TABLET PO SCH (09:32)
[2019-06-14] MEDS: FERROUS SULFATE 325 MG TABLET PO SCH (09:32)
[2019-06-14] MEDS: DOCUSATE SODIUM 100 MG CAPSULE PO SCH (09:33)
--- NOTE | 2019-06-14 13:52 | PDOC DISCHARGE SUMMARY ---
Final Diagnosis Discharge Date: 06/14/19 - Final Diagnosis (1) Acute blood loss anemia Is this a current diagnosis for this admission?: Yes (2) Delivery normal Is this a current diagnosis for this admission?: Yes (3) Grand multiparity Is this a current diagnosis for this admission?: Yes (4) Group B streptococcal infection during Is this a current diagnosis for this admission?: Yes (5) Obesity Is this a current diagnosis for this admission?: Yes (6) Is this a current diagnosis for this admission?: Yes Discharge Data - Discharge Medication Prescriptions: Ibuprofen [Motrin 800 mg Tablet] 800 mg PO Q8HP PRN #20 tablet PRN Reason: Docusate Sodium [Colace 100 mg Capsule] 100 mg PO BID #60 capsule Ferrous Sulfate [Feosol 325 mg Tablet] 325 mg PO BID #60 tablet Vit/Dha [ Multi + Dha Capsule] 1 cap PO DAILY #90 capsule Home Medications: Docusate Sodium [Colace 100 mg Capsule] 100 mg PO BID #60 capsule 06/14/19 Ferrous Sulfate [Feosol 325 mg Tablet] 325 mg PO BID #60 tablet 06/14/19 Ibuprofen [Motrin 800 mg Tablet] 800 mg PO Q8HP PRN #20 tablet 06/14/19 Vit/Dha [ Multi + Dha Capsule] 1 cap PO DAILY #90 capsule 06/14/19 Reason(s) for Admission: Onset of Labor Procedures: Ultrasound Intrapartum Procedure(s): Spontaneous Vaginal Delivery - Diagnosis Test Laboratory: Temp Pulse Resp BP Pulse Ox 97.8 F 72 17 105/63 99 06/14/19 13:33 06/14/19 13:33 06/14/19 13:33 06/14/19 13:33 06/14/19 13:33 06/12/19 06/12/19 06/13/19 08:23 10:56 07:07 RBC 4.88 4.13 Hgb 11.7 L 9.9 L Hct 36.6 30.9 L Urine Opiates Screen NEGATIVE - Discharge information/Instructions Discharge Activity: Activity As Tolerated, Balance Activity w/Rest, No Lifting Over 10 Pounds, No Lifting/Push/Pulling, Pelvic Rest, Slowly Increase Activity, No tub bath, Walk Frequently Discharge Diet: As Tolerated, Regular Disposition: HOME, SELF-CARE Follow up with: [facility] in: 4, 5, Weeks
[2019-06-14 15:45] VITALS: BP 122/69
--- NOTE | 2019-06-15 13:27 | Delivery Summary ---
Del Sum A-C Datetime Report Generated by CPN: 06/15/2019 13:27 DELIVERY PERSONNEL DELIVERY PERSONNEL: [id number] Delivery Doctor:: Dr. Lynch Labor and Delivery Nurse:: Sarita Leyva RNseam finisher Nurse:: Simona Walsh RN Movie Critic:: Lashay Juan Luis, RNC MATERNAL INFORMATION Delivery Anesthesia: None Medications After Delivery: Pitocin Drip 20 Units/1000ml NSS Estimated Blood Loss (ml): 300 Maternal Complications: None Provider Comments: Spontaneous vaginal delivery of a male with Apgars of 9/9, weight pending, over an intact perineum. Placenta delivered spontaneous complete via a three vessel cord. Patient tolerated procedure well. LABOR SUMMARY EDC: 06/15/2019 00:00 No. Babies in Womb: 1 Attempted: No Labor Anesthesia: None LABOR INFORMATION Reason for Induction: Not Applicable Onset of Labor: 06/12/2019 06:00 Oxytocin: N/A Group B Beta Strep: positive Antibiotics # of Doses: 1 Antibiotics Time of Last Dose: 836 Name of Antibiotic Given: PCN Steroids Given: None Reason Steroids Not Administered: Not Applicable MEMBRANES Membranes Rupture Method: Spontaneous Membranes Rupture Method: Spontaneous Rupture of Membranes: 06/12/2019 09:00 Length of Rupture (hr): 0.03 Amniotic Fluid Color: Clear Amniotic Fluid Amount: Moderate STAGES OF LABOR Stage 3 hr: 0 Stage 3 min: 2 Total Time in Labor hr: 3 Total Time in Labor min: 4 VAGINAL DELIVERY Episiotomy: None Laceration #1: None Laceration Extension #1: N/A Laceration Repair: Not Applicable Sponge Count Correct: N/A Sharps Count Correct: N/A CSECTION DELIVERY Primary Indication: N/A Secondary Indication: N/A CSection Incidence: N/A Labor: N/A Elective: N/A CSection Incision: N/A BABY A INFORMATION Delivery Date/Time: 06/12/2019 09:02 Method of Delivery: Vaginal Born in Route : No : N/A Forceps: N/A Vacuum Extraction: N/A Shoulder Dystocia : No PRESENTATION/POSITION BABY A Presentation: Cephalic Cephalic Presentation: Vertex Vertex Position: Right Occipital Anterior Breech Presentation: N/A PLACENTA INFORMATION BABY A Placenta Delivery Time : 06/12/2019 09:04 Placenta Method of Delivery: Spontaneous Placenta Status: Delivered SCORES BABY A Heart Rate 1 min: >100 bpm Resp Effort 1 min: Good Cry Reflex Irritability 1 min: Cough or Sneeze or Pulls Away Muscle Tone 1 min: Active Motion Color 1 min: Body Uriah, Extremities Blue Resuscitation Effort 1 min: Tactile Stimulation SCORE 1 MIN: 9 Heart Rate 5 min: >100 bpm Resp Effort 5 min: Good Cry Reflex Irritability 5 min: Cough or Sneeze or Pulls Away Muscle Tone 5 min: Active Motion Color 5 min: Body Uriah, Extremities Blue Resuscitation Effort 5 min: N/A SCORE 5 MIN: 9 INFORMATION BABY A Gestational Age at Delivery: 39.4 Gestational Age at Delivery: 39.4 Gestational Status: Full Term- 39- 40.6 Weeks Infant Outcome : Liveborn Outcome : Liveborn Infant Condition : Stable Condition : Stable Infant Sex: Male Infant Sex: Male IDENTIFICATION BABY A Infant Verification Date/Time: 06/12/2019 09:19 ID Band Number: [id number] Mother's Name Verified: Yes RN Verifying : Lashay Camp RNC Additional Verifying Personnel: Saritaflorence Leyva RN WEIGHT/LENGTH BABY A Birthweight (gm): 3318 Infant Weight (lb): 7 Infant Weight (oz): 5 Length (in): 20.50 Length (cm): 52.07 CORD INFORMATION BABY A No. Cord Vessels: 3 Nuchal Cord : N/A Cord Blood Taken: Yes-For Eval (Mom's Blood Type - or O+) Suction: Mouth; Nose ASSESSMENT BABY A Infant Complications: None Physical Findings at Delivery: Within Normal Limits Respirations: Appears Normal Infant Care By: B Baidy RN BABY B INFORMATION : N/A SIGNATURES Signature: with User ID: [email or web address] : I was personally available for consultation and serving as supervising physician for the MLP. : I was personally available for consultation and serving as supervising physician for the MLP. : I personally evaluated and examined the patient in conjunction with the MLP and agree with the assessment, treatment plan and disposition. : I personally evaluated and examined the patient in conjunction with the MLP and agree with the assessment, treatment plan and disposition.
== END 2019-06-14 15:26 | disposition home or self-care (01) | DRG 807 ==
LOC: LC 08:02 → LR 08:40 → 2S 12:16
PROVIDERS: ADMIT Obstetrics & Gynecology; ATTEND Obstetrics & Gynecology
PROC: 10E0XZZ Delivery of Products of Conception, External Approach (ICD-10-PCS; principal; 2019-06-12)
PROC: 3E0234Z Introduction of Serum, Toxoid and Vaccine into Muscle, Percutaneous Approach (ICD-10-PCS; 2019-06-13)
DX: O99.824 Streptococcus B carrier state complicating childbirth (principal); Z37.0 Single live birth; Z3A.39 39 weeks gestation of pregnancy
CPT/HCPCS: 36415; 80307; 81005; 85025; 85027; 85461; 86592; 86850; 86870; 86900; 86901; J2210; J2540; J2590; J2790; J3490